=== PATIENT | female | born 1955 | race Caucasian/White ===

== ENCOUNTER → 2017-06-09 | Outpatient (CLI) | payer OTHER ==
--- NOTE | ~2017-06-09 | MY11 ---
[facility] A Service of [facility] RADIOLOGY TEXT RESULTS PATIENT: REUBEN SUN LOCATION: [facility] : 51 UNIT #: [id number] AGE: [address]: Milton Mccray MD SEX: F ORDER DR: [id number] [facility] [address] [place], [place] [address] [id number] O MR#: [id number] Acc #: [id number] NAME: REUBEN SUN : 1955 SEX: F STUDY DATE/TIME: 06/09/2017 9:32 UNIT: [facility] ROOM: STUDY DESCRIPTION: MY Mammogram Screening Dig Godwin Attending Physician: Milton Mccray M.D. Referring Physician: Milton Mccray M.D. Ordering Physician: Milton Mccray M.D. Primary Care Physician: Milton Mccray M.D. MEDICAL IMAGING REPORT This report is preliminary unless electronic signature is present EXAM Digital screening mammogram, 06/09/2017 HISTORY 62-year-old woman new baseline mammogram. Left breast larger than right according to history. No risk elevation. COMPARISON None available. FINDINGS Digital imaging of each breast was completed utilizing screening protocol. Review includes FDA-approved CAD device. Breast parenchyma is heterogeneous and partially fatty replaced with mild parenchymal dominance noted in the upper hemisphere of the right breast. I see no suspicious mass characteristics. Occasional vascular calcification noted in each breast with no suspicious microcalcifications and no architectural distortion. IMPRESSION Benign mammogram. Annual screening recommended. Patients over the age of 40 are entered into a reminder system with target due date for the next mammogram. A result letter will also be sent to the patient. BIRADS: 2 Benign Finding Dictated by... Joseph Martínez M.D. THIS IS AN ELECTRONICALLY VERIFIED REPORT Joseph Martínez M.D. at 06/09/2017 12:53 PM [facility] A Service of [facility] RADIOLOGY TEXT RESULTS PATIENT: REUBEN SUN LOCATION: [facility] #: [id number] : 51 UNIT #: [id number] AGE: [address]: Milton Mccray MD SEX: F ORDER DR: GLENN/brianna TD: 06/09/2017 12:07 JOB #: [id number] MEDICAL IMAGING REPORT Page 1 of 1 COPY
--- NOTE | ~2017-06-09 | BD1 ---
[facility] A Service of [facility] RADIOLOGY TEXT RESULTS PATIENT: REUBEN SUN LOCATION: [facility] : 51 UNIT #: [id number] AGE: [address]: Milton Mccray MD SEX: F ORDER DR: [id number] [facility] [address] [place], [place] [address] [id number] O MR#: [id number] Acc #: [id number] NAME: REUBEN SUN : 1955 SEX: F STUDY DATE/TIME: 06/09/2017 9:59 UNIT: [facility] ROOM: STUDY DESCRIPTION: BD Dexa Bone Dens 1+ Site Attending Physician: Milton Mccray M.D. Referring Physician: Milton Mccray M.D. Ordering Physician: Milton Mccray M.D. Primary Care Physician: Milton Mccray M.D. MEDICAL IMAGING REPORT This report is preliminary unless electronic signature is present EXAM DXA scan, 06/09/2017. HISTORY Status post menopause with no hormone replacement therapy. Osteopenia. Left hip replacement and rheumatoid arthritis. Diabetes. Hypertension with blood pressure medication for 6 years. Steroid use, prednisone, for 2-1/2 years, increased risk for osteoporosis. Fracture of toes in last 10 years. Family history of osteoporosis in mother and sister. FINDINGS Bone mineral density in the lumbar spine from L1 through L4 is 0.873 g/cm2, which is 1.6 standard deviations below the mean when compared to the young adult reference population, which is characteristic of osteopenia. This is 0.1 standard deviation above the mean when compared to the age-matched population. Bone mineral density in the right femoral neck was 0.597 g/cm2, which is 2.3 standard deviations below the mean when compared to the young adult reference population, which is characteristic of osteopenia. This is 0.8 standard deviation below the mean when compared to the age-matched population. IMPRESSION Bone mineral density in the lumbar spine and left hip characteristic of osteopenia. Dictated by... Tawanda Myers M.D. THIS IS AN ELECTRONICALLY VERIFIED REPORT Tawanda Myers M.D. at 06/10/2017 8:38 AM [facility] A Service of [facility] RADIOLOGY TEXT RESULTS PATIENT: REUBEN SUN LOCATION: [facility] : 51 UNIT #: [id number] AGE: [address]: Milton Mccray MD SEX: F ORDER DR: Andrey TD: 06/09/2017 12:34 JOB #: [id number] MEDICAL IMAGING REPORT Page 1 of 1 COPY
== END | disposition home or self-care (01) ==
LOC: CWCC 09:18
DX: Z12.31 Encounter for screening mammogram for malignant neoplasm of breast (principal); M81.0 Age-related osteoporosis without current pathological fracture; M85.89 Other specified disorders of bone density and structure, multiple sites; Z79.52 Long term (current) use of systemic steroids; Z88.2 Allergy status to sulfonamides; Z88.8 Allergy status to other drugs, medicaments and biological substances
CPT/HCPCS: 77080; G0202